=== PATIENT | male | born 1990 | race Caucasian/White ===

== ENCOUNTER 2017-04-10 16:27 | Emergency (ER) | payer BC, OTHER ==
[2017-04-10 16:44] VITALS: BP 118/67; PULSE 70; RESP 18; TEMP 98.1
--- NOTE | 2017-04-10 16:48 | ED ---
General Adult HPI - General Chief complaint: Head Injury Stated complaint: Fall/Head Injury Time Seen by Provider: 04/10/17 16:41 Source: patient, RN notes reviewed Mode of arrival: wheelchair Limitations: no limitations - History of Present Illness Initial comments: 26-year-old male presents to the emergency 5 chief complaint of head injury. Patient states she slipped on the stairs and he hit his head when he the bottom so he was concerned. Patient states there is no loss of consciousness. He states he has mild headache. No nausea no vomiting no neck pain. Patient denies any changes in vision. Patient states he has had concussions in the past he wanted make sure that he did not have a concussion today. Patient states it is not currently having any other symptoms at this time.Patient denies any recent fever, chills, shortness of breath, chest pain, back pain, abdominal pain, nausea vomiting, numbness or tingling, dysuria or hematuria, constipation or diarrhea, visual changes, or any other current symptoms. - Related Data Home Medications Medication Instructions Recorded Confirmed Multivitamins, Thera [Multivitamin] 1 tab PO DAILY 11/02/15 11/02/15 Previous Rx's Medication Instructions Recorded Ibuprofen [Motrin] 600 mg PO Q6HR PRN #20 tab 11/02/15 Allergies Allergy/AdvReac Type Severity Reaction Status Date / Time No Known Allergies Allergy Verified 04/10/17 16:43 Review of Systems ROS Statement: Those systems with pertinent positive or pertinent negative responses have been documented in the HPI. ROS Other: All systems not noted in ROS Statement are negative. Past Medical History Past Medical History: No Reported History History of Any Multi-Drug Resistant Organisms: None Reported Past Surgical History: No Surgical Hx Reported Past Psychological History: No Psychological Hx Reported Smoking Status: Never smoker Past Alcohol Use History: Occasional Past Drug Use History: None Reported General Exam - General Exam Comments Initial Comments: General: The patient is awake and alert, in no distress, and does not appear acutely ill. Eye: Pupils are equal, round and reactive to light, extra-ocular movements are intact; there is normal conjunctiva bilaterally. No signs of icterus. Ears, nose, mouth and throat: There are moist mucous membranes and no oral lesions. Neck: The neck is supple, there is no tenderness. Cardiovascular: There is a regular rate and rhythm. No murmur, rub or gallop is appreciated. Respiratory: Lungs are clear to auscultation, respirations are non-labored, breath sounds are equal. No wheezes, stridor, rales, or rhonchi. Back: There is no tenderness to palpation in the midline. There is no obvious deformity. No rashes noted. Musculoskeletal: Normal ROM, no tenderness, There is no pedal edema. There is no calf tenderness or swelling. Sensation intact. Pulses equal bilaterally 2+. Neurological: CN II-XII intact, There are no obvious motor or sensory deficits. Coordination appears grossly intact. Speech is normal. Negative Romberg's, negative heel to chung. Skin: Skin is warm and dry and no rashes or lesions are noted. Psychiatric: Cooperative, appropriate mood & affect, normal judgment. Limitations: no limitations Course Vital Signs 04/10/17 16:40 Temperature 98.1 F Pulse Rate 70 Respiratory 18 Rate Blood Pressure 118/67 O2 Sat by Pulse 96 Oximetry Medical Decision Making - Medical Decision Making 26-year-old male presents for head injury. This time we discussed the patient signs and symptoms. We did discuss in [place] to the watch and wait. We discussed what to watch for. We discussed return parameters. We discussed follow-up. We discussed all the patient's questions. He stated that he understood and he is given plan. All questions have been answered. This time patient will be discharged home. Disposition Clinical Impression: Minor head injury without loss of consciousness Disposition: HOME SELF-CARE Condition: Stable Instructions: Head Injury (ED) Additional Instructions: Please use medication as discussed. Please follow up with family doctor if symptoms have not improved over the next two days. Please return to the emergency room if your symptoms increase or worsen or for any other concerns. Referrals: Jose Ma MD [Primary Care Provider] - 1-2 days Time of Disposition: 16:47
== END 2017-04-10 17:23 | disposition home or self-care (01) ==
LOC: EC 16:27
DX: S09.90XA Unspecified injury of head, initial encounter (principal); Z79.899 Other long term (current) drug therapy; W10.9XXA Fall (on) (from) unspecified stairs and steps, initial encounter; Y92.009 Unspecified place in unspecified non-institutional (private) residence as the place of occurrence of the external cause
CPT/HCPCS: 99283

== ENCOUNTER 2019-01-29 09:45 | Emergency (ER) | payer BC ==
--- NOTE | 2019-01-29 10:40 | ED ---
Extremity Problem HPI - General Chief complaint: Extremity Problem,Nontraumatic Stated complaint: collar bone pain Time Seen by Provider: 01/29/19 10:18 Source: patient, RN notes reviewed, old records reviewed Mode of arrival: ambulatory Limitations: no limitations - History of Present Illness Initial comments: Patient is a 28-year-old male presents emergency department today for evaluation with complaints of right-sided collarbone pain. Patient reports that he has woken his right collarbone when he was in high school. Patient reports that he's had no other symptoms. Patient reports his been having some chronic pain for the past year. - Related Data Previous Rx's Medication Instructions Recorded Naproxen 500 mg PO BID #20 tablet 01/29/19 Allergies Allergy/AdvReac Type Severity Reaction Status Date / Time No Known Allergies Allergy Verified 01/29/19 10:31 Review of Systems ROS Statement: Those systems with pertinent positive or pertinent negative responses have been documented in the HPI. ROS Other: All systems not noted in ROS Statement are negative. Past Medical History Past Medical History: No Reported History History of Any Multi-Drug Resistant Organisms: None Reported Past Surgical History: No Surgical Hx Reported Past Psychological History: No Psychological Hx Reported Smoking Status: Never smoker Past Alcohol Use History: Occasional Past Drug Use History: None Reported General Exam - General Exam Comments Initial Comments: 28-year-old male. Alert and oriented. No distress. Limitations: no limitations General appearance: alert, in no apparent distress Head exam: Present: atraumatic, normocephalic, normal inspection Eye exam: Present: normal appearance, PERRL, EOMI. Absent: scleral icterus, conjunctival injection, periorbital swelling ENT exam: Present: normal exam, mucous membranes moist Neck exam: Present: normal inspection, other ( has deformed V-shaped collarbone. No bruising. This healed abnormally. He has normal sensation and range of motion of the right arm and elbow.). Absent: tenderness, meningismus, lymphadenopathy Respiratory exam: Present: normal lung sounds bilaterally. Absent: respiratory distress, wheezes, rales, rhonchi, stridor Cardiovascular Exam: Present: regular rate, normal rhythm, normal heart sounds. Absent: systolic murmur, diastolic murmur, rubs, gallop, clicks GI/Abdominal exam: Present: soft, normal bowel sounds. Absent: distended, tenderness, guarding, rebound, rigid Extremities exam: Present: normal inspection, full ROM, normal capillary refill. Absent: tenderness, pedal edema, joint swelling, calf tenderness Back exam: Present: normal inspection Neurological exam: Present: alert, oriented X3, CN II-XII intact Psychiatric exam: Present: normal affect, normal mood Skin exam: Present: warm, dry, intact, normal color. Absent: rash Course Vital Signs 01/29/19 10:10 Temperature 97.8 F Pulse Rate 80 Respiratory 18 Rate Blood Pressure 124/85 O2 Sat by Pulse 99 Oximetry Medical Decision Making - Medical Decision Making His is a 28-year-old male presents today for evaluation for right collarbone pain. He reports that tonight. After fracture 8 years ago. He has a known deformity, with 10 to collarbone seen. Patient had no recent falls or trauma. At this time x-ray was reviewed and shows evidence of a healed fracture. No other acute abnormalities. Discussed Patient likely suffered from some arthritis and tendon injury due to the abnormal healing of the fracture over 8 years ago. Patient will be discharged with referral for orthopedics given a note for work. Discussed using anti-inflammatory medicine icing the area. All questions answered. - Radiology Data Radiology results: report reviewed Tenderness compatible with history of fracture. It appears healed. Late right lung apex is normal. Disposition Clinical Impression: Collar bone pain Disposition: HOME SELF-CARE Condition: Good Instructions (If sedation given, give patient instructions): Clavicle Fracture (ED) Additional Instructions: Patient advised to take the anti-inflammatory medicine as prescribed. R ecommended following up with hair specialist. Return to the emergency department if any alarming signs or symptoms occur. Prescriptions: Naproxen 500 mg PO BID #20 tablet Is patient prescribed a controlled substance at d/c from ED?: No Referrals: Jose Ma MD [Primary Care Provider] - 1-2 days Alo Ballard MD [STAFF PHYSICIAN] - 1-2 days Time of Disposition: 11:50
--- NOTE | 2019-01-29 10:44 | XR ---
Right clavicle HISTORY: Pain 2 views of the right clavicle Mid diaphyseal right clavicular fracture appears healed. Right lung apex as visualized is normal. Bon e mineralization, joint spaces and alignment are otherwise maintained. IMPRESSION: Findings compatible with patient's history of fracture.
[2019-01-29 11:57] VITALS: BP 115/75; PULSE 65; RESP 16; TEMP 97.9
== END 2019-01-29 11:59 | disposition home or self-care (01) ==
LOC: EC 09:45
DX: M25.511 Pain in right shoulder (principal)
CPT/HCPCS: 99284

== ENCOUNTER → 2020-07-09 | Outpatient (CLI) | payer BC | END | disposition home or self-care (01) | LOC: LABWHC1 12:00 | PROVIDERS: ATTEND Emergency Medicine | DX: Z20.828 Contact with and (suspected) exposure to other viral communicable diseases (principal) | CPT/HCPCS: U0003; C9803 ==

== ENCOUNTER 2022-09-02 00:33 | Emergency (ER) | payer BC ==
[2022-09-02 00:43] VITALS: TEMP 97.3
--- NOTE | 2022-09-02 01:10 | ED ---
General Adult HPI - General Chief complaint: Extremity Problem,Nontraumatic Stated complaint: Right elbow pain Time Seen by Provider: 09/02/22 00:55 Source: patient, RN notes reviewed, old records reviewed Mode of arrival: ambulatory Limitations: no limitations - History of Present Illness Initial comments: Patient is a 31-year-old male with past medical history remarkable for prior right elbow injury 2 months ago presents emergency Department with acute onset of right elbow pain. States he originally injured his right elbow at work 2 months ago. It did improve but yesterday while at work he seems to have aggravated it. Uncertain any specific motion or action that caused the injury as he states that he felt that later in the evening. States is located over the posterior aspect of his right elbow. It is worse with extension or flexion. Endorses some mild swelling at the site. Denies any numbness or weakness distal to the right elbow. No other injuries. Presents for further evaluation. - Related Data Previous Rx's Medication Instructions Recorded Naproxen 500 mg PO BID #20 tablet 01/29/19 Allergies Allergy/AdvReac Type Severity Reaction Status Date / Time No Known Allergies Allergy Verified 09/02/22 00:39 Review of Systems ROS Statement: Those systems with pertinent positive or pertinent negative responses have been documented in the HPI. Review of Systems: CONST: Denies fever EYES: Denies blurry vision ENT: Denies nasal congestion C/V: Denies Chest pain RESP: Denies shortness of breath GI: Denies abdominal pain : Denies dysuria SKIN: Denies rash. MSK: Endorses right elbow pain. NEURO: Denies headache ROS Other: All systems not noted in ROS Statement are negative. Past Medical History Past Medical History: No Reported History History of Any Multi-Drug Resistant Organisms: None Reported Past Surgical History: No Surgical Hx Reported Past Psychological History: No Psychological Hx Reported Smoking Status: Never smoker Past Alcohol Use History: Occasional Past Drug Use History: Marijuana General Exam - General Exam Comments Initial Comments: General: Appears in no acute distress. HEAD: Normal with no signs of head trauma. EYES: EOMI ENT: Hearing grossly intact RESPIRATORY:. No respiratory distress C/V: Regular rate and rhythm. Peripheral pulses 2+ and intact throughout. Tachycardic in triage which resolved. ABD: Nondistended EXT: Reduced range of motion of the right elbow. Tender to palpation over the posterior proximal aspect of the right elbow. No obvious, minimal swelling. Pain with passive range of motion. No skin changes. No obvious deformity. Neurovascularly intact. SKIN: No rashes or lesions observed on exposed skin. NEURO: Alert and oriented 4. Limitations: no limitations Course Vital Signs 09/02/22 00:39 Temperature 97.3 F L Pulse Rate 109 H Respiratory 18 Rate Blood Pressure 121/89 O2 Sat by Pulse 99 Oximetry Medical Decision Making - Medical Decision Making Based on the patient's presentation and physical exam, I'm concerned for likely tendinous injury to the patient's right elbow. Low concern for bony traumatic injury however with like to obtain an x-ray as he did not originally get evaluated. He was in agreement this plan. Vital signs within acceptable limits. He declines analgesic medications at this time.Patient's x-ray reveals no acute bony traumatic injury. I updated the patient. I discussed splinting him versus sling and he was in agreement sling at this time. I'll provide him with a contact info for follow-up orthopedic surgery. Patient will receive a work note as well. He was in agreement this plan. I instructed the patient to follow up with their PCP in the next 1-3 days. I provided contact information for follow up with orthopedic Surgery Dr. Ballard. I explained that the patient should return to the emergency department if they experience any worsening symptoms. Strict return precautions were discussed with the patient. The patient expressed understanding of these instructions. I answered all questions that the patient had. The patient was discharged home in good condition with their prescriptions and follow up information. Was pt. sent in by a medical professional or institution (, PA, ASSISTANT PROFESSOR OF RADIOLOGY, urgent care, hospital, or prison...) When possible be specific @ -No Did you speak to anyone other than the patient for history (EMS, parent, family, police, friend...)? What history was obtained from this source @ -No Did you review nursing and triage notes (agree or disagree)? Why? @ -I reviewed and agree with nursing and triage notes Were old charts reviewed (outside hosp., previous admission, EMS record, old EKG, old radiological studies, urgent care reports/EKG's, prison records)? Report findings @ -No old charts were reviewed Differential Diagnosis (chest pain, altered mental status, abdominal pain women, abdominal pain men, vaginal bleeding, weakness, fever, dyspnea, syncope, headache, dizziness, GI bleed, back pain, seizure, CVA, palpatations, mental health)? @ -Right elbow fracture, right elbow sprain, ligament injury. This list is not all inclusive. EKG interpreted by me (3pts min.). @ -None done. X-rays interpreted by me (1pt min.). @ -Right elbow x-ray reveals no obvious injury. CT interpreted by me (1pt min.). @ -None done U/S interpreted by me (1pt. min.). @ -None done What testing was considered but not performed or refused? (CT, X-rays, U/S, labs)? Why? @ -None What meds were considered but not given or refused? Why? @ -Analgesia medications but the patient declined. Did you discuss the management of the patient with other professionals (professionals i.e. , PA, ASSISTANT PROFESSOR OF RADIOLOGY, lab, RT, psych nurse, social media director, nanotechnologist, teacher, geological technical officer, case briefer)? Give summary @ -No Was smoking cessation discussed for >3mins.? @ -No Was critical care preformed (if so, how long)? @ -No Were there social determinants of health that impacted care today? How? (Homelessness, low income, unemployed, alcoholism, drug addiction, transportation, low edu. Level, literacy, decrease access to med. care, detention, rehab)? @ -No Was there de-escalation of care discussed even if they declined (Discuss DNR or withdrawal of care, Hospice)? DNR status @ -No What co-morbidities impacted this encounter? (DM, HTN, Smoking, COPD, CAD, Cancer, CVA, ARF, Chemo, Hep., AIDS, mental health diagnosis, sleep apnea, morbid obesity)? @ -None Was patient admitted / discharged? Hospital course, mention meds given and route, prescriptions, significant lab abnormalities, going to OR and other pertinent info. @ -Patient was discharged home. See above for ED course. Undiagnosed new problem with uncertain prognosis? @ -No Drug Therapy requiring intensive monitoring for toxicity (Heparin, Nitro, Insulin, Cardizem)? @ -No Were any procedures done? @ -No Diagnosis/symptom? @ -Right elbow pain, sprain Acute, or Chronic, or Acute on Chronic? @ -Acute on chronic Uncomplicated (without systemic symptoms) or Complicated (systemic symptoms)? @ -Uncomplicated Side effects of treatment? @ -No Exacerbation, Progression, or Severe Exacerbation? @ -No Poses a threat to life or bodily function? How? (Chest pain, [place], [place], pneumonia, PE, COPD, DKA, ARF, appy, cholecystitis, CVA, Diverticulitis, Homicidal, Suicidal, threat to staff... and all critical care pts) @ -No Disposition Clinical Impression: Right elbow pain, Sprain of right elbow Disposition: HOME SELF-CARE Condition: Good Is patient prescribed a controlled substance at d/c from ED?: No Referrals: Jose Ma MD [Primary Care Provider] - 1-2 days Alo Ballard MD [STAFF PHYSICIAN] - 1-2 days Time of Disposition: 01:30
--- NOTE | 2022-09-02 01:23 | XR ---
EXAMINATION TYPE: XR elbow complete RT DATE OF EXAM: 09/02/2022 COMPARISON: NONE HISTORY: Elbow pain TECHNIQUE: 3 views FINDINGS: There is no evidence of fracture nor dislocation. Joint spaces are normal. No pathologic ca lcification. IMPRESSION: Negative right elbow exam.
[2022-09-02 02:25] VITALS: BP 118/68; PULSE 97; RESP 16
== END 2022-09-02 02:00 | disposition home or self-care (01) ==
LOC: EC 00:33
DX: S53.402A Unspecified sprain of left elbow, initial encounter (principal); F12.90 Cannabis use, unspecified, uncomplicated; X50.9XXA Other and unspecified overexertion or strenuous movements or postures, initial encounter; Y99.0 Civilian activity done for income or pay
CPT/HCPCS: 99283